=== PATIENT | female | born 1935 | race Two or more races ===

== ENCOUNTER 2023-12-03 16:33 | Inpatient (IN) | payer OTHER ==
[~2023-12-03] VITALS: Ht 157.5 cm; Wt 36.3 kg
[2023-12-03] MEDS ORDERED: GLUMETZA500 MG (16:46)
[2023-12-03] MEDS ORDERED: EZALLOR SPRINKLE5 MG PO (16:46)
[2023-12-03] MEDS ORDERED: CLONAZEPAM0.125 MG PO (16:46)
[2023-12-03] MEDS ORDERED: ENALAPRIL M1 MG/1 ML PO (16:47)
[2023-12-03] MEDS ORDERED: CHILDREN'S ASPI81 MG (16:47)
[2023-12-03] MEDS ORDERED: LEVOFLOXACIN (16:47)
[2023-12-03] MEDS ORDERED: LASIX20 MG (16:47)
[2023-12-03] MEDS ORDERED: SULFAMETHOXAZO473 ML (16:47)
[2023-12-03 18:22] LABS: HEMATOCRIT 26.3 % (36.0-45.00); HEMOGLOBIN 9.1 g/dL (12.0-15.00); MEAN CELL VOLUME 94.8 fL (80.00-100.00); MEAN CORPUSCULAR HEMOGLOBIN 32.6 pg (27.00-32.0); MEAN CORPUSCULAR HGB CONC 34.4 g/dl (32.0-36.0); PLATELET COUNT 277 K/uL (150-450); RED BLOOD COUNT 2.77 M/uL (4.00-6.00); RED CELL DISTRIBUTION WIDTH 14.3 % (11.5-14.5)
[2023-12-03 18:24] LABS: ERYTHROCYTE SEDIMENTATION RATE 90 mm/hr
[2023-12-03 18:39] LABS: INR 1.08; PARTIAL THROMBOPLASTIN TIME 28.1 SECONDS (22.0-34.0); PROTHROMBIN TIME 11.3 SECONDS (9.0-11.5)
[2023-12-03 18:43] LABS: BILIRUBIN TOTAL 0.37 mg/dL (0.3-1.2); CALCIUM 8.3 mg/dL (8.5-10.1); CREATININE SERUM 3.57 mg/dL (0.55-1.02); GFR 12.1; POTASSIUM 4.81 mEq/L (3.5-5.1)
[2023-12-03 18:44] LABS: C-REACTIVE PROTEIN 1.99 MG/DL (0.00-0.29)
[2023-12-03 21:20] LABS: URINE APPEARANCE Turbid; URINE BILIRRUBIN Negative (NEGATIVE); URINE BLOOD Negative; URINE COLOR Yellow; URINE GLUCOSE Negative (NEGATIVE); URINE LEUKOCYTE Negative; URINE NITRATE Negative; URINE UROBILINOGEN 0.2 E.U./dl
[2023-12-03 21:21] LABS: URINE BACTERIA 153.7 uL (0.0-1933); URINE EPITHELIAL CELLS 116.4 uL (0.0-38.8); URINE RBC 2.1 uL (0.0-20.8); URINE WBC 15.7 uL (0.0-23.2)
[2023-12-03 21:40] LABS: URINE PROTEIN 100 (NEGATIVE)
[2023-12-03 21:41] LABS: URINE MUCUS SCANT
[2023-12-03 21:42] LABS: URINE CRYSTALS MANY /HPF
[2023-12-04 00:14] LABS: ABG PH 7.435 (7.35-7.45); ABG PO2 105.8 mmHg (80-100); BASE EXCESS -4.3 mmol/l; BICARBONATE 18.3 mmol/l (23-25); Tco2 19.2 mmol/l; o2 21 %
[2023-12-04 00:15] LABS: SaO2 98.2 %; allen test SATISFACTORY; puncture site BRADIAL LEFT
[2023-12-05 06:51] LABS: MEAN CELL VOLUME 93.4 fL (80.00-100.00); MEAN CORPUSCULAR HGB CONC 35.2 g/dl (32.0-36.0); PLATELET COUNT 244 K/uL (150-450); RED BLOOD COUNT 2.46 M/uL (4.00-6.00); RED CELL DISTRIBUTION WIDTH 14.2 % (11.5-14.5)
[2023-12-05 06:52] LABS: MEAN CORPUSCULAR HEMOGLOBIN 32.9 pg (27.00-32.0)
[2023-12-05 06:53] LABS: HEMOGLOBIN 8.1 g/dL (12.0-15.00)
[2023-12-05 07:18] LABS: ALBUMIN 2.4 gm/dL (3.4-5.0); CALCIUM 7.9 mg/dL (8.5-10.1); CREATININE SERUM 3.1 mg/dL (0.55-1.02); GFR 14.25; POTASSIUM 4.52 mEq/L (3.5-5.1)
[2023-12-06 12:27] LABS: MEAN CELL VOLUME 94.9 fL (80.00-100.00); MEAN CORPUSCULAR HGB CONC 34.4 g/dl (32.0-36.0); PLATELET COUNT 245 K/uL (150-450); RED BLOOD COUNT 2.47 M/uL (4.00-6.00); RED CELL DISTRIBUTION WIDTH 14.8 % (11.5-14.5)
[2023-12-06 12:32] LABS: MEAN CORPUSCULAR HEMOGLOBIN 32.7 pg (27.00-32.0)
[2023-12-06 12:33] LABS: HEMATOCRIT 23.5 % (36.0-45.00); HEMOGLOBIN 8.1 g/dL (12.0-15.00)
[2023-12-07 07:12] LABS: ALBUMIN 2.6 gm/dL (3.4-5.0); BILIRUBIN TOTAL 0.38 mg/dL (0.3-1.2); CALCIUM 8.4 mg/dL (8.5-10.1); CREATININE SERUM 2.61 mg/dL (0.55-1.02); GFR 17.37; GLOBULINA 3.7 G/DL (2.4-3.5); POTASSIUM 3.81 mEq/L (3.5-5.1); TOTAL PROTEIN 6.3 gm/dL (6.4-8.2)
[2023-12-07 07:57] LABS: HEMATOCRIT 25.1 % (36.0-45.00); MEAN CELL VOLUME 95.7 fL (80.00-100.00); MEAN CORPUSCULAR HGB CONC 33.7 g/dl (32.0-36.0); PLATELET COUNT 277 K/uL (150-450); RED BLOOD COUNT 2.62 M/uL (4.00-6.00); RED CELL DISTRIBUTION WIDTH 14.8 % (11.5-14.5)
[2023-12-07 08:06] LABS: MAGNESIUM 1.2 mg/dL (1.8-2.4)
[2023-12-07 08:42] LABS: HEMOGLOBIN 8.4 g/dL (12.0-15.00)
[2023-12-08 06:04] LABS: HEMATOCRIT 31.1 % (36.0-45.00); HEMOGLOBIN 10.9 g/dL (12.0-15.00); MEAN CELL VOLUME 87.9 fL (80.00-100.00); MEAN CORPUSCULAR HGB CONC 35.2 g/dl (32.0-36.0); PLATELET COUNT 226 K/uL (150-450); RED BLOOD COUNT 3.53 M/uL (4.00-6.00)
[2023-12-08 06:05] LABS: RED CELL DISTRIBUTION WIDTH 18.8 % (11.5-14.5)
[2023-12-08 10:58] LABS: CALCIUM 8.1 mg/dL (8.5-10.1); CREATININE SERUM 2.47 mg/dL (0.55-1.02); GFR 18.52; MAGNESIUM 2.4 mg/dL (1.8-2.4); POTASSIUM 3.62 mEq/L (3.5-5.1)
[2023-12-09 06:58] LABS: HEMATOCRIT 32.8 % (36.0-45.00); HEMOGLOBIN 11.3 g/dL (12.0-15.00); MEAN CELL VOLUME 88.7 fL (80.00-100.00); MEAN CORPUSCULAR HEMOGLOBIN 30.5 pg (27.00-32.0); MEAN CORPUSCULAR HGB CONC 34.4 g/dl (32.0-36.0); PLATELET COUNT 228 K/uL (150-450); RED BLOOD COUNT 3.69 M/uL (4.00-6.00); RED CELL DISTRIBUTION WIDTH 19.4 % (11.5-14.5)
[2023-12-09 07:22] LABS: CALCIUM 7.9 mg/dL (8.5-10.1); CREATININE SERUM 2.1 mg/dL (0.55-1.02); GFR 22.33; POTASSIUM 3.41 mEq/L (3.5-5.1)
[2023-12-12 06:18] LABS: HEMATOCRIT 27.5 % (36.0-45.00); HEMOGLOBIN 9.5 g/dL (12.0-15.00); MEAN CELL VOLUME 88.9 fL (80.00-100.00); MEAN CORPUSCULAR HEMOGLOBIN 30.7 pg (27.00-32.0); MEAN CORPUSCULAR HGB CONC 34.5 g/dl (32.0-36.0); PLATELET COUNT 158 K/uL (150-450); RED BLOOD COUNT 3.09 M/uL (4.00-6.00); RED CELL DISTRIBUTION WIDTH 18.2 % (11.5-14.5)
[2023-12-12 06:44] LABS: ALBUMIN 1.9 gm/dL (3.4-5.0); BILIRUBIN TOTAL 0.33 mg/dL (0.3-1.2); CALCIUM 8.1 mg/dL (8.5-10.1); GFR 23.62; GLOBULINA 3.5 G/DL (2.4-3.5); POTASSIUM 4.78 mEq/L (3.5-5.1); TOTAL PROTEIN 5.4 gm/dL (6.4-8.2)
[2023-12-13 08:07] LABS: HEMATOCRIT 26.9 % (36.0-45.00); HEMOGLOBIN 9.2 g/dL (12.0-15.00); MEAN CELL VOLUME 90.9 fL (80.00-100.00); MEAN CORPUSCULAR HEMOGLOBIN 31.1 pg (27.00-32.0); MEAN CORPUSCULAR HGB CONC 34.3 g/dl (32.0-36.0); PLATELET COUNT 149 K/uL (150-450); RED BLOOD COUNT 2.96 M/uL (4.00-6.00); RED CELL DISTRIBUTION WIDTH 17.6 % (11.5-14.5)
[2023-12-13 08:25] LABS: CALCIUM 7.9 mg/dL (8.5-10.1); CREATININE SERUM 2.29 mg/dL (0.55-1.02); GFR 20.21; MAGNESIUM 1.7 mg/dL (1.8-2.4); POTASSIUM 4.93 mEq/L (3.5-5.1)
[2023-12-14 14:08] LABS: ob POSITIVE (NEGATIVE)
[2023-12-15 07:28] LABS: HEMATOCRIT 25.9 % (36.0-45.00); HEMOGLOBIN 9.1 g/dL (12.0-15.00); MEAN CELL VOLUME 89.2 fL (80.00-100.00); MEAN CORPUSCULAR HEMOGLOBIN 31.2 pg (27.00-32.0); PLATELET COUNT 156 K/uL (150-450); RED CELL DISTRIBUTION WIDTH 17.2 % (11.5-14.5)
[2023-12-15 07:52] LABS: CALCIUM 7.7 mg/dL (8.5-10.1); CREATININE SERUM 1.56 mg/dL (0.55-1.02); GFR 31.47; MAGNESIUM 1.9 mg/dL (1.8-2.4); POTASSIUM 4.83 mEq/L (3.5-5.1)
[2023-12-17 07:17] LABS: MEAN CELL VOLUME 89.4 fL (80.00-100.00); MEAN CORPUSCULAR HGB CONC 34.6 g/dl (32.0-36.0); PLATELET COUNT 225 K/uL (150-450); RED BLOOD COUNT 2.61 M/uL (4.00-6.00); RED CELL DISTRIBUTION WIDTH 17.5 % (11.5-14.5)
[2023-12-17 07:18] LABS: CALCIUM 7.9 mg/dL (8.5-10.1); CREATININE SERUM 1.71 mg/dL (0.55-1.02); GFR 28.3; MAGNESIUM 1.9 mg/dL (1.8-2.4); POTASSIUM 4.49 mEq/L (3.5-5.1)
[2023-12-17 08:09] LABS: HEMATOCRIT 23.3 % (36.0-45.00)
[2023-12-17 08:10] LABS: HEMOGLOBIN 8.1 g/dL (12.0-15.00)
[2023-12-18 14:40] LABS: HEMATOCRIT 33.8 % (36.0-45.00); HEMOGLOBIN 11.2 g/dL (12.0-15.00); MEAN CELL VOLUME 91.6 fL (80.00-100.00); MEAN CORPUSCULAR HEMOGLOBIN 30.3 pg (27.00-32.0); MEAN CORPUSCULAR HGB CONC 33.1 g/dl (32.0-36.0); PLATELET COUNT 284 K/uL (150-450); RED BLOOD COUNT 3.69 M/uL (4.00-6.00); RED CELL DISTRIBUTION WIDTH 17.1 % (11.5-14.5)
[2023-12-18 14:54] LABS: CREATININE SERUM 1.42 mg/dL (0.55-1.02); GFR 35.07; POTASSIUM 4.82 mEq/L (3.5-5.1)
[2023-12-20 08:39] LABS: CALCIUM 8.3 mg/dL (8.5-10.1); CREATININE SERUM 1.66 mg/dL (0.55-1.02); GFR 29.29; MAGNESIUM 2.1 mg/dL (1.8-2.4); PHOSPHOROUS 2.5 mg/dL (2.5-4.9); POTASSIUM 4.96 mEq/L (3.5-5.1)
[2023-12-20 08:59] LABS: HEMATOCRIT 32.8 % (36.0-45.00); HEMOGLOBIN 11.3 g/dL (12.0-15.00); MEAN CELL VOLUME 90.3 fL (80.00-100.00); MEAN CORPUSCULAR HEMOGLOBIN 31.2 pg (27.00-32.0); MEAN CORPUSCULAR HGB CONC 34.6 g/dl (32.0-36.0); PLATELET COUNT 365 K/uL (150-450); RED BLOOD COUNT 3.63 M/uL (4.00-6.00); RED CELL DISTRIBUTION WIDTH 17.2 % (11.5-14.5)
[2023-12-22 07:15] LABS: HEMATOCRIT 31.6 % (36.0-45.00); HEMOGLOBIN 10.8 g/dL (12.0-15.00); MEAN CELL VOLUME 92.5 fL (80.00-100.00); MEAN CORPUSCULAR HEMOGLOBIN 31.7 pg (27.00-32.0); MEAN CORPUSCULAR HGB CONC 34.2 g/dl (32.0-36.0); PLATELET COUNT 416 K/uL (150-450); RED BLOOD COUNT 3.41 M/uL (4.00-6.00); RED CELL DISTRIBUTION WIDTH 17.5 % (11.5-14.5)
[2023-12-22 07:51] LABS: ALBUMIN 2.2 gm/dL (3.4-5.0); BILIRUBIN TOTAL 0.21 mg/dL (0.3-1.2); CALCIUM 8.5 mg/dL (8.5-10.1); CREATININE SERUM 1.45 mg/dL (0.55-1.02); GFR 34.24; GLOBULINA 4.2 G/DL (2.4-3.5); POTASSIUM 5.05 mEq/L (3.5-5.1); TOTAL PROTEIN 6.4 gm/dL (6.4-8.2)
[2023-12-24 07:33] LABS: MEAN CELL VOLUME 91.3 fL (80.00-100.00); MEAN CORPUSCULAR HEMOGLOBIN 30.4 pg (27.00-32.0); MEAN CORPUSCULAR HGB CONC 33.3 g/dl (32.0-36.0); PLATELET COUNT 371 K/uL (150-450); RED BLOOD COUNT 3.28 M/uL (4.00-6.00); RED CELL DISTRIBUTION WIDTH 17.5 % (11.5-14.5)
[2023-12-24 07:52] LABS: CALCIUM 8.5 mg/dL (8.5-10.1); CREATININE SERUM 1.4 mg/dL (0.55-1.02); GFR 35.65; POTASSIUM 4.25 mEq/L (3.5-5.1)
[2023-12-25] MEDS ORDERED: PANTOPRAZOLE SO40 MG PO (10:17)
[2023-12-25] MEDS ORDERED: INTESTINEX680 M1 PO (10:17)
[2023-12-25] MEDS ORDERED: APETIGEN P12.5 MG/15 PO (10:17)
[2023-12-25] MEDS ORDERED: FOLIC ACID1 MG PO (10:17)
[2023-12-25] MEDS ORDERED: FLUCONAZOLE200 MG PO (10:17)
[2023-12-25] MEDS ORDERED: VITAMIN B-1000 MCG/3 PO (10:17)
== END 2023-12-25 14:32 | disposition home or self-care (01) | DRG 854 ==
LOC: ER 16:33 → SURH 20:45
PROVIDERS: General Practice; Internal Medicine; Internal Medicine Nephrology; Specialist; ADMIT Internal Medicine; ATTEND Internal Medicine
PROC: B54CZZZ Ultrasonography of Left Lower Extremity Veins (ICD-10-PCS; 2023-12-03)
PROC: B44GZZZ Ultrasonography of Left Lower Extremity Arteries (ICD-10-PCS; 2023-12-03)
PROC: BT4JZZZ Ultrasonography of Kidneys and Bladder (ICD-10-PCS; 2023-12-04)
PROC: 30233N1 Transfusion of Nonautologous Red Blood Cells into Peripheral Vein, Percutaneous Approach (ICD-10-PCS; 2023-12-07)
PROC: 0Y6D0Z1 Detachment at Left Upper Leg, High, Open Approach (ICD-10-PCS; principal; 2023-12-08 15:00)
PROC: BW28ZZZ Computerized Tomography (CT Scan) of Head (ICD-10-PCS; 2023-12-14)
PROC: 0JBQ3ZZ Excision of Right Foot Subcutaneous Tissue and Fascia, Percutaneous Approach (ICD-10-PCS; 2023-12-16)
DX: A41.9 Sepsis, unspecified organism (principal); I96 Gangrene, not elsewhere classified; L89.153 Pressure ulcer of sacral region, stage 3; L97.528 Non-pressure chronic ulcer of other part of left foot with other specified severity; N17.8 Other acute kidney failure; L03.116 Cellulitis of left lower limb; N17.9 Acute kidney failure, unspecified; L08.89 Other specified local infections of the skin and subcutaneous tissue; E11.22 Type 2 diabetes mellitus with diabetic chronic kidney disease; I12.9 Hypertensive chronic kidney disease with stage 1 through stage 4 chronic kidney disease, or unspecified chronic kidney disease; N18.9 Chronic kidney disease, unspecified; B96.1 Klebsiella pneumoniae [K. pneumoniae] as the cause of diseases classified elsewhere; E11.621 Type 2 diabetes mellitus with foot ulcer; I25.10 Atherosclerotic heart disease of native coronary artery without angina pectoris; Z79.4 Long term (current) use of insulin; F43.20 Adjustment disorder, unspecified